=== PATIENT | female | born 1950 | race Caucasian/White ===

== ENCOUNTER → 2019-04-09 | Day surgery (SDC) | payer MEDICARE ==
[2019-04-09 15:01] VITALS: BP 108/56; PULSE 62; RESP 16; TEMP 98
--- NOTE | 2019-04-09 15:23 | USB ---
EXAMINATION TYPE: US biopsy breast VAD LT, MG diagnostic mammo LT wo CAD DATE OF EXAM: 04/09/2019 CLINICAL HISTORY: R92.8 Abnormal Mammogram. TECHNIQUE: Ultrasound guided core biopsy of left breast. COMPARISON: Outside left breast ultrasound dated 03/06/2019 FINDINGS: The procedure of ultrasound guided core biopsy was explained to the patient. Benefits, alternatives, and risks were discussed. An informed consent was then obtained. Preprocedural timeout was performed. The patient was placed in supine positioning for imaging and for the procedure. The overlying skin was prepped and draped in usual sterile fashion. 10 cc of 1% lidocaine was used as anesthetic into the skin and subcutaneous tissue up to the 0.6 cm mass at the 10:00 position in the left breast. Under ultrasound guidance, a 12-gauge vacuum assisted biopsy gun device was used to obtain 3 core samples. Following this, a ribbon-shaped biopsy marker was left at the site of biopsy. Postprocedure mammogram demonstrates appropriate biopsy marker placement. The patient tolerated the procedure well without any immediate complication. The patient was kept in the radiology department for short stay after the procedure and then discharged home in stable condition. IMPRESSION: Successful, uncomplicated ultrasound guided core biopsy of a 0.6 cm mass at the 10:00 position in the left breast, full pathology results to follow. There is collapse of the mass on biopsy suggesting a cystic nature. Pathology Results: Benign LEFT BREAST, 10:00, ULTRASOUND GUIDED CORE BIOPSY: Benign breast with prominent adipose tissue and focal fibrosis. See note. Recommendation Follow up mammogram of the left breast in 6 months. ELIJAH
== END ==
LOC: RADUSWWP 12:47
PROVIDERS: ATTEND Student in an Organized Health Care Education/Training Program
DX: N60.32 Fibrosclerosis of left breast (principal)
CPT/HCPCS: 88305; 77065; 19083; A4648; J2001

== ENCOUNTER → 2019-04-09 | Outpatient (CLI) | payer MEDICARE ==
--- NOTE | 2019-04-10 08:37 | USB ---
Reason for exam: clinical finding. History: Patient is postmenopausal and is nulliparous. Benign stereotactic core biopsy of the left breast, July 08, 2000. Excisional biopsy of the left breast, 1986. Excisional biopsy of the right breast, 1986. Core biopsy of the left breast. Took estrogen for 17 years 1 month beginning at age 41. Physical Findings: Nurse did not find any significant physical abnormalities on exam. US Breast Limited RT Right limited breast ultrasound including focal area of concern, retroareolar and axilla demonstrates no cystic or solid lesion seen. No sonographic suspicious finding. These results were verbally communicated with the patient and result sheet given to the patient on 04/09/19. ASSESSMENT: Negative, BI-RAD 1 RECOMMENDATION: Routine screening mammogram of both breasts in 1 year.
== END | disposition home or self-care (01) ==
LOC: RADUSWWP 13:56
PROVIDERS: ATTEND Radiology Body Imaging
DX: N63.10 Unspecified lump in the right breast, unspecified quadrant (principal)

== ENCOUNTER → 2019-11-08 | Outpatient (CLI) | payer MEDICARE ==
[2019-11-08 11:43] LABS: Basophils # (A) 0.1 k/uL (0-0.2); Basophils % (A) 1 %; Eosinophils # (A) 0.2 k/uL (0-0.7); Eosinophils % (A) 3 %; HCT 36.9 % (34.0-46.0); Lymphocytes # (A) 1.8 k/uL (1.0-4.8); Lymphocytes % (A) 27 %; MCH 31.2 pg (25.0-35.0); MCHC 32.6 g/dL (31.0-37.0); MCV 95.9 fL (80.0-100.0); Mean Platelet Volume 7.6; Monocytes # (A) 0.4 k/uL (0-1.0); Monocytes % (A) 5 %; Neutrophils # (A) 4.2 k/uL (1.3-7.7); Neutrophils % (A) 62 %; Platelet Count 259 k/uL (150-450); RBC 3.85 m/uL (3.80-5.40); RDW 12.5 % (11.5-15.5); WBC 6.7 k/uL (3.8-10.6)
[2019-11-08 11:53] LABS: Appearance,Urine Clear (Clear); Bilirubin,Urine Negative (Negative); Blood,Urine Negative (Negative); Color,Urine Yellow; Glucose,Urine (UA) Negative (Negative); Ketones,Urine Negative (Negative); Leukocyte Esterase,Urine Small (Negative); Nitrite,Urine Negative (Negative); PH, Urine 7.5 (5.0-8.0); Protein,Urine Negative (Negative); RBC,Urine 2 /hpf (0-5); Specific Gravity,Urine 1.013 (1.001-1.035); Squamous Epithelial Cell,Urine 1 /hpf (0-4); Urobilinogen,Urine <2.0 mg/dL (<2.0); WBC,Urine 2 /hpf (0-5)
== END | disposition home or self-care (01) ==
LOC: LABWHC1 11:10
PROVIDERS: ATTEND Family Medicine
DX: N39.0 Urinary tract infection, site not specified (principal)
CPT/HCPCS: 36415; 81001; 85025; 86140; 87086

== ENCOUNTER → 2019-11-27 | Outpatient (CLI) | payer MEDICARE ==
--- NOTE | 2019-11-27 13:31 | MM ---
Reason for exam: follow-up at short interval from prior study. Last mammogram was performed 8 months ago. History: Patient is postmenopausal and is nulliparous. Benign US biopsy breast VAD LT of the left breast, April 09, 2019. Benign stereotactic core biopsy of the left breast, July 08, 2000. Excisional biopsy of the left breast, 1986. Excisional biopsy of the right breast, 1986. Core biopsy of the left breast. Took estrogen for 17 years 1 month beginning at age 41. Physical Findings: Nurse did not find any significant physical abnormalities on exam. MG 3D Diag Mammo W/Cad LT CC and MLO view(s) were taken of the left breast. Prior study comparison: April 09, 2019, left breast MG diagnostic mammo LT wo CAD. March 17, 2011, bilateral digital screening mammo w/CAD. The breast tissue is heterogeneously dense. This may lower the sensitivity of mammography. Finding: There are typically benign dystrophic, round, linear calcifications in the left breast. Previous mammotome biopsy in the left breast x 2. There is no discrete abnormality. These results were verbally communicated with the patient and result sheet given to the patient on 11/27/19. ASSESSMENT: Benign, BI-RAD 2 RECOMMENDATION: Routine screening mammogram of both breasts in 2 months. Back on schedule for January 2020.
== END | disposition home or self-care (01) ==
LOC: RADMAMWWP 12:47
PROVIDERS: ATTEND Student in an Organized Health Care Education/Training Program
DX: R92.8 Other abnormal and inconclusive findings on diagnostic imaging of breast (principal)
CPT/HCPCS: 77065; G0279; 77061

== ENCOUNTER → 2020-02-07 | Outpatient (CLI) | payer MEDICARE ==
[2020-02-07 21:23] LABS: African American GFR (CKD) 47.8 (60.0-200.0); Anion Gap 9.9 mmol/L (4.00-12.00); BUN/Creat Ratio 25.38 Ratio (12.00-20.00); Calcium 9.4 mg/dL (8.7-10.3); Carbon Dioxide 26.1 mmol/L (21.6-31.8); Non-African American GFR(CKD) 41.2 (60.0-200.0); Potassium 4.5 mmol/L (3.5-5.5)
== END | disposition home or self-care (01) ==
LOC: LABWHC1 10:58
PROVIDERS: ATTEND Physician Assistant
DX: I10 Essential (primary) hypertension (principal); R53.83 Other fatigue
CPT/HCPCS: 36415; 80048; 84443

== ENCOUNTER → 2020-02-20 | Outpatient (CLI) | payer MEDICARE ==
--- NOTE | 2020-02-20 14:33 | MM ---
Reason for exam: screening (asymptomatic). Last mammogram was performed 3 months ago. History: Patient is postmenopausal and is nulliparous. Benign US biopsy breast VAD LT of the left breast, April 09, 2019. Benign stereotactic core biopsy of the left breast, July 08, 2000. Excisional biopsy of the left breast, 1986. Excisional biopsy of the right breast, 1986. Core biopsy of the left breast. Took estrogen for 17 years 1 month beginning at age 41. Physical Findings: A clinical breast exam by your physician is recommended on an annual basis and results should be correlated with mammographic findings. MG 3D Screening Mammo W/Cad Bilateral CC and MLO view(s) were taken. Prior study comparison: November 27, 2019, left breast MG 3d diag mammo w/cad LT. April 09, 2019, left breast MG diagnostic mammo LT wo CAD. There are scattered fibroglandular densities. Finding: There are typically benign dystrophic, round, linear calcifications in both breasts. Previous mammotome biopsy in the left breast x 2. Focal asymmetry oval, middle inferior depth MLO 20/63 8cm from the nipple. New finding since November 27, 2019 and April 09, 2019. ASSESSMENT: Incomplete: need additional imaging evaluation, BI-RAD 0 RECOMMENDATION: Special view mammogram of the right breast. If lesion persists on supplemental views, image directed ultrasound is recommended. [facility] will attempt to contact patient to return for supplemental views and ultrasound if indicated.
== END | disposition home or self-care (01) ==
LOC: RADMAMWWP 09:10
PROVIDERS: ATTEND Family Medicine
DX: Z12.31 Encounter for screening mammogram for malignant neoplasm of breast (principal)
CPT/HCPCS: 77063; 77067

== ENCOUNTER → 2020-02-26 | Outpatient (CLI) | payer MEDICARE ==
--- NOTE | 2020-02-26 14:43 | MM ---
Reason for exam: additional evaluation requested from abnormal screening. Last mammogram was performed less than 1 month ago. History: Patient is postmenopausal and is nulliparous. Benign US biopsy breast VAD LT of the left breast, April 09, 2019. Benign stereotactic core biopsy of the left breast, July 08, 2000. Excisional biopsy of the left breast, 1986. Excisional biopsy of the right breast, 1980. Took estrogen for 17 years 1 month beginning at age 41. Physical Findings: Nurse did not find any significant physical abnormalities on exam. MG 3D Work Up W/Cad RT Spot compression CC and LM view(s) were taken of the right breast. Prior study comparison: February 20, 2020, bilateral MG 3d screening mammo w/cad. November 27, 2019, left breast MG 3d diag mammo w/cad LT. There are scattered fibroglandular densities. Finding: There is a 6 mm equal density (isodense) mass in the lower quadrant of the right breast. These results were verbally communicated with the patient and result sheet given to the patient on 02/26/20. ASSESSMENT: Incomplete: need additional imaging evaluation, BI-RAD 0 RECOMMENDATION: Ultrasound of the right breast.
--- NOTE | 2020-02-26 14:44 | USB ---
Reason for exam: additional evaluation requested from abnormal screening. History: Patient is postmenopausal and is nulliparous. Benign US biopsy breast VAD LT of the left breast, April 09, 2019. Benign stereotactic core biopsy of the left breast, July 08, 2000. Excisional biopsy of the left breast, 1986. Excisional biopsy of the right breast, 1980. Took estrogen for 17 years 1 month beginning at age 41. US Breast Workup Limited RT Right limited breast ultrasound including focal area of concern, retroareolar and axilla demonstrates no cystic or solid lesion seen. These results were verbally communicated with the patient and result sheet given to the patient on 02/26/20. ASSESSMENT: Probably benign, BI-RAD 3 RECOMMENDATION: Follow-up diagnostic mammogram of the right breast in 6 months.
== END | disposition home or self-care (01) ==
LOC: RADMAMWWP 12:46
PROVIDERS: ATTEND Family Medicine
DX: R92.8 Other abnormal and inconclusive findings on diagnostic imaging of breast (principal)
CPT/HCPCS: 77065; 76642; G0279; 77061

== ENCOUNTER → 2020-08-21 | Outpatient (CLI) | payer MEDICARE ==
--- NOTE | 2020-08-21 12:35 | XR ---
EXAMINATION TYPE: XR cervical spine comp DATE OF EXAM: 08/21/2020 TECHNIQUE: Frontal, lateral, oblique, swimmers, and open mouth view of the cervical spine are obtaine d. HISTORY: M54.2 CERVICAL PAIN COMPARISON: 03/02/2016 FINDINGS: The dens is intact. Atlantoaxial and atlantooccipital articulations appear intact. C7-T1 is well visualized. No significant loss of vertebral body height is seen. There is maintenance of the n ormal cervical lordosis. Prevertebral soft tissues are unremarkable. There is mild retrolisthesis of C3 on C4 and C4 on C5 and C5 on C6. Degenerative changes of the facets are seen. There are multilevel moderate bilateral areas of neural foraminal stenosis including the right C4-5, C5-6 and C6-7 and C7 -T1 and the left C4-5, C 5 6 and C 6 7 levels. IMPRESSION: 1. Multilevel degenerative changes of the cervical spine.
--- NOTE | 2020-08-21 12:41 | XR ---
EXAMINATION TYPE: XR chest 2V DATE OF EXAM: 08/21/2020 COMPARISON: NONE HISTORY: 69-year-old female with chest pain TECHNIQUE: Frontal and lateral views of the chest are obtained. FINDINGS: Mild asymmetric elevation of the right hemidiaphragm. No focal consolidation, pneumothorax or pleural effusion. Heart size is within normal limits. Atherosclerotic aorta. Degenerative changes of the thoracic spine. IMPRESSION: 1. No acute pulmonary disease. 2. Asymmetric mild elevation of the right hemidiaphragm. Consider diaphragmatic paralysis.
[2020-08-21 14:21] LABS: Basophils # (A) 0.06 X 10*3/uL (0.00-0.10); Eosinophils % (A) 3.2 %; HCT 36.3 % (37.2-46.3); Lymphocytes # (A) 1.97 X 10*3/uL (0.90-5.00); Lymphocytes % (A) 31.2 %; MCH 31.7 pg (27.0-32.0); MCHC 33.1 g/dL (32.0-37.0); MCV 95.8 fL (80.0-97.0); Mean Platelet Volume 10.4 fL (9.5-12.2); Monocytes # (A) 0.48 X 10*3/uL (0.20-1.00); Monocytes % (A) 7.6 %; Neutrophils # (A) 3.57 X 10*3/uL (1.80-7.70); Neutrophils % (A) 56.5 %; Platelet Count 265 X 10*3/uL (140-440); RBC 3.79 X 10*6/uL (4.10-5.20); RDW 12.5 % (11.5-14.5); WBC 6.31 X 10*3/uL (4.50-10.00)
--- NOTE | 2020-08-21 14:31 | XR ---
EXAMINATION TYPE: XR shoulder limited RT DATE OF EXAM: 08/21/2020 CLINICAL HISTORY: Pain in the right shoulder and neck TECHNIQUE: Three views of the right shoulder are obtained. COMPARISON: None. FINDINGS: Single AP view of the right shoulder limited. No acute fracture/dislocation evident in the right shoulder in one view. Severe narrowing of the acromioclavicular joint. Soft tissues are unremar kable. Right lung field is clear. IMPRESSION: 1. Severe degenerative narrowing of the right acromioclavicular joint suggestive of osteoporosis. No evidence of acute fracture of the right shoulder.
[2020-08-21 22:02] LABS: African American GFR (CKD) 65.6 (60.0-200.0); Albumin 4.4 g/dL (3.80-4.90); Albumin/Globulin Ratio 2.1 (1.60-3.17); Anion Gap 7.3 mmol/L (4.00-12.00); Calcium 10.2 mg/dL (8.7-10.3); Carbon Dioxide 25.7 mmol/L (21.6-31.8); Globulin 2.1 g/dL (1.6-3.3); Non-African American GFR(CKD) 56.6 (60.0-200.0); Potassium 4.6 mmol/L (3.5-5.5); Total Bilirubin 0.3 mg/dL (0.2-1.2); Total Protein 6.5 g/dL (6.2-8.2)
== END | disposition home or self-care (01) ==
LOC: LABWHC1 10:33
PROVIDERS: ATTEND Family Medicine
DX: M19.011 Primary osteoarthritis, right shoulder (principal); M47.812 Spondylosis without myelopathy or radiculopathy, cervical region; R07.9 Chest pain, unspecified; R05 Cough
CPT/HCPCS: 36415; 71046; 72050; 80053; 84443; 85025

== ENCOUNTER → 2020-08-27 | Outpatient (CLI) | payer MEDICARE ==
--- NOTE | 2020-08-28 09:15 | MM ---
Reason for exam: additional evaluation requested from abnormal screening. Last mammogram was performed 6 months ago. History: Patient is postmenopausal and is nulliparous. Benign US biopsy breast VAD LT of the left breast, April 09, 2019. Benign stereotactic core biopsy of the left breast, July 08, 2000. Excisional biopsy of the left breast, 1986. Excisional biopsy of the right breast, 1980. Took estrogen for 17 years 1 month beginning at age 41. Physical Findings: Nurse did not find any significant physical abnormalities on exam. MG 3D Diag Mammo W/Cad RT CC and MLO view(s) were taken of the right breast. Prior study comparison: February 26, 2020, right breast MG 3d work up w/cad RT. February 20, 2020, bilateral MG 3d screening mammo w/cad. 6mm nodule 7 o'clock, 6.5cm from nipple, stable. Probably benign. 6 month follow up of right breast. Due for bilateral mammogram January 2012. Previous mammotome biopsy in the right breast. These results were verbally communicated with the patient and result sheet given to the patient on 08/27/20. ASSESSMENT: Probably benign, BI-RAD 3 RECOMMENDATION: Follow-up diagnostic mammogram of both breasts in 6 months. Back on schedule.
== END | disposition home or self-care (01) ==
LOC: RADMAMWWP 14:17
PROVIDERS: ATTEND Family Medicine
DX: N63.10 Unspecified lump in the right breast, unspecified quadrant (principal); Z78.0 Asymptomatic menopausal state
CPT/HCPCS: 77065; G0279; 77061

== ENCOUNTER → 2021-03-16 | Outpatient (CLI) | payer MEDICARE ==
--- NOTE | 2021-03-17 09:23 | MM ---
Reason for exam: additional evaluation requested from prior study. Last mammogram was performed 7 months ago. History: Patient is postmenopausal and is nulliparous. Benign US biopsy breast VAD LT of the left breast, April 09, 2019. Benign stereotactic core biopsy of the left breast, July 08, 2000. Excisional biopsy of the left breast, 1986. Excisional biopsy of the right breast, 1980. Took hormonal contraceptives for 20 years. Took estrogen for 17 years 1 month beginning at age 41. Physical Findings: Nurse did not find any significant physical abnormalities on exam. MG 3D Diag Mammo W/Cad [facility] Bilateral CC and MLO view(s) were taken. Prior study comparison: August 27, 2020, right breast MG 3d diag mammo w/cad RT. February 26, 2020, right breast MG 3d work up w/cad RT. There are scattered fibroglandular densities. There are benign appearing linear calcifications bilaterally. Previous mammotome biopsy in the left breast. There is no discrete abnormality. These results were verbally communicated with the patient and result sheet given to the patient on 03/16/21. ASSESSMENT: Benign, BI-RAD 2 RECOMMENDATION: Follow-up diagnostic mammogram of both breasts in 1 year.
== END | disposition home or self-care (01) ==
LOC: RADMAMWWP 14:58
PROVIDERS: ATTEND Family Medicine
DX: R92.1 Mammographic calcification found on diagnostic imaging of breast (principal); R92.8 Other abnormal and inconclusive findings on diagnostic imaging of breast; Z78.0 Asymptomatic menopausal state
CPT/HCPCS: 77066; G0279; 77062

== ENCOUNTER → 2021-10-05 | Day surgery (SDC) | payer MEDICARE ==
[~2021-10-05] MED LIST: SODIUM CHLORIDE 0.9% 1,000 ML IV SCH; SODIUM CHLORIDE 0.9% 500 ML 500 ML IV ONE
[2021-10-05 11:53] VITALS: RESP 16; TEMP 87.2
[2021-10-05 14:54] VITALS: BP 128/72; PULSE 68
--- NOTE | 2021-10-06 18:59 | P.EPPROC ---
- EP Procedure Note Electrophysiology Procedure Note: Diagnosis Recurrent presyncope Twelve-lead EKG shows sinus mechanism normal OK narrow QRS normal ST segments Normal QT interval no delta waves no epsilon waves Tilt table test for protocol Baseline blood pressure 139/62 mmHg Baseline heart rate 61 beats a minute Patient was tilted upright at an angle of 70 per protocol There was an increase in her heart rate to 150-1 70 mmHg diastolics remain the 70s Heart rates remained normal She had no complaints She is the supine the end of the procedure Impression Normal twelve-lead EKG Mildly elevated blood pressure readings upon standing No evidence for neurocardiogenic syncope/ dysautonomia
== END ==
LOC: CATHEP 11:23
PROVIDERS: ATTEND Internal Medicine Clinical Cardiac Electrophysiology
DX: R55 Syncope and collapse (principal); I49.5 Sick sinus syndrome; I10 Essential (primary) hypertension; E78.5 Hyperlipidemia, unspecified; I47.1 Supraventricular tachycardia; I49.3 Ventricular premature depolarization; R53.82 Chronic fatigue, unspecified; E66.9 Obesity, unspecified; Z20.822 Contact with and (suspected) exposure to COVID-19; Z68.41 Body mass index [BMI] 40.0-44.9, adult; Z88.6 Allergy status to analgesic agent; Z88.0 Allergy status to penicillin; Z88.8 Allergy status to other drugs, medicaments and biological substances; Z88.2 Allergy status to sulfonamides; Z79.899 Other long term (current) drug therapy; Z82.49 Family history of ischemic heart disease and other diseases of the circulatory system
CPT/HCPCS: 87635; 93660

== ENCOUNTER → 2023-05-19 | Outpatient (CLI) | payer MEDICARE ==
--- NOTE | 2023-05-20 09:49 | MM ---
Reason for Exam: Screening (asymptomatic). Last screening mammogram was performed 12 month(s) ago. Patient History: Menarche at age 12. Patient has no children. Left ovary removed at age 41. Right ovary removed at age 41. Hysterectomy at age 41. Postmenopausal. Estrogen for 17 years, 1 month, from age 41 until age 58. Patient used Hormonal Contraceptives for 20 years. 1980, Excisional Biopsy on the Right side. 1986, Excisional Biopsy on the Left side. 04/09/2019, Benign Core Biopsy on the left side. 07/08/2000, Benign Stereotactic Core Biopsy on the left side. Risk Values: María 5 year model risk: 2.7%. NCI Lifetime model risk: 6.2%. Prior Study Comparison: 08/27/2020 Right Diagnostic Mammogram, [facility]. 03/16/2021 Bilateral Diagnostic Mammogram, [facility]. 05/05/2022 Bilateral MG 3D diag mammo w/cad [place], [facility]. Tissue Density: There are scattered fibroglandular densities. Findings: Analyzed By CAD. There is no suspicious group of microcalcifications or new suspicious mass in either breast. Benign-appearing calcifications bilaterally. Previous biopsy clip within the left breast. Overall Assessment: Benign, BI-RAD 2 Management: Screening Mammogram of both breasts in 1 year. . Patient should continue monthly self-breast exams. A clinical breast exam by your physician is recommended on an annual basis. This exam should not preclude additional follow-up of suspicious palpable abnormalities. Note on María scores and lifetime risk: 1. A María score greater than 3% is considered moderate risk. If this is the case, consider specialist referral to assess eligibility for a risk reducing agent. 2. If overall lifetime risk for the development of breast cancer is 20% or higher, the patient may qualify for future screening with alternating mammogram and breast MRI. Electronically signed and approved by: Eitan Delacruz M.D. Radiologis
== END | disposition home or self-care (01) ==
LOC: RADMAMWWP 10:42
PROVIDERS: ATTEND Family Medicine
DX: Z12.31 Encounter for screening mammogram for malignant neoplasm of breast (principal); Z78.0 Asymptomatic menopausal state
CPT/HCPCS: 77063; 77067

== ENCOUNTER → 2024-06-11 | Outpatient (CLI) | payer MEDICARE ==
--- NOTE | 2024-06-12 07:46 | MM ---
Reason for Exam: Screening (asymptomatic). Last mammogram was performed 1 year(s) and 1 month(s) ago. Patient History: Menarche at age 12. Patient has no children. Left ovary removed at age 41. Right ovary removed at age 41. Hysterectomy at age 41. Postmenopausal. Estrogen for 17 years, 1 month, from age 41 until age 58. Patient used Hormonal Contraceptives for 20 years. 1980, Excisional Biopsy on the Right side. 1986, Excisional Biopsy on the Left side. 04/09/2019, Benign Core Biopsy on the left side. 07/08/2000, Benign Stereotactic Core Biopsy on the left side. Risk Values: María 5 year model risk: 2.7%. NCI Lifetime model risk: 5.8%. Prior Study Comparison: 03/16/2021 Bilateral Diagnostic Mammogram, [facility]. 05/05/2022 Bilateral MG 3D diag mammo w/cad [facility], [facility]. 05/19/2023 Bilateral MG 3D screening mammo w/cad, [facility]. Tissue Density: There are scattered areas of fibroglandular density. Findings: Analyzed By CAD. There are benign-appearing rounded and linear calcifications bilaterally redemonstrated. Mammotome biopsy clip in the left breast is again seen. There is no suspicious new group of microcalcifications or new suspicious mass in either breast. Overall Assessment: Benign, BI-RAD 2 Management: Screening Mammogram of both breasts in 1 year. . Patient should continue monthly self-breast exams. A clinical breast exam by your physician is recommended on an annual basis. This exam should not preclude additional follow-up of suspicious palpable abnormalities. Note on María scores and lifetime risk: 1. A María score greater than 3% is considered moderate risk. If this is the case, consider specialist referral to assess eligibility for a risk reducing agent. 2. If overall lifetime risk for the development of breast cancer is 20% or higher, the patient may qualify for future screening with alternating mammogram and breast MRI. [facility], , 06/12/2024 7:43 AM. Electronically signed and approved by: Pipo Negron M.D.
== END | disposition home or self-care (01) ==
LOC: RADMAMWWP 15:34
PROVIDERS: ATTEND Family Medicine
DX: Z12.31 Encounter for screening mammogram for malignant neoplasm of breast (principal); R92.323 Mammographic fibroglandular density, bilateral breasts; Z78.0 Asymptomatic menopausal state; Z92.0 Personal history of contraception
CPT/HCPCS: 77063; 77067